=== PATIENT | female | born 1980 ===

== ENCOUNTER 2019-12-26 08:05 | Outpatient (CLI) | payer OTHER | END 2019-12-26 08:06 | disposition home or self-care (01) | LOC: SONOGRAMA 08:05 | DX: N94.89 Other specified conditions associated with female genital organs and menstrual cycle (principal); N83.8 Other noninflammatory disorders of ovary, fallopian tube and broad ligament; Z33.2 Encounter for elective termination of pregnancy; N83.02 Follicular cyst of left ovary ==

== ENCOUNTER 2020-08-02 09:35 | Emergency (ER) | payer OTHER ==
[~2020-08-02] VITALS: Ht 165.1 cm; Wt 98.9 kg
== END 2020-08-02 15:29 | disposition home or self-care (01) ==
LOC: ER 09:35
DX: O26.891 Other specified pregnancy related conditions, first trimester (principal); R10.2 Pelvic and perineal pain; Z3A.01 Less than 8 weeks gestation of pregnancy; O36.80X0 Pregnancy with inconclusive fetal viability, not applicable or unspecified; O26.851 Spotting complicating pregnancy, first trimester